=== PATIENT | female | born 1995 | race Caucasian/White ===

== ENCOUNTER → 2018-02-14 | Outpatient (CLI) | payer OTHER | LOC: FIMAGING 11:02 | PROVIDERS: ATTEND Physician Assistant | DX: Z87.42 Personal history of other diseases of the female genital tract (principal) ==

== ENCOUNTER 2018-05-16 19:43 | Emergency (ER) | payer OTHER ==
[2018-05-16 19:58] VITALS: BP 134/84
--- NOTE | 2018-05-16 20:39 | EDPHY ---
H & P Stated Complaint: c/o sharp intermittent pain in R knee 7 days, no known inj Time Seen by Provider: 05/16/18 20:14 HPI/ROS: Chief Complaint: Right anterior knee pain HPI: The patient presents to the ED right anterior knee pain for the past 5 days. It seems to be exacerbated by running. The patient feels a clicking over the the the right lateral anterior aspect of the patella. She denies any calf pain. She denies additional acute complaints. REVIEW OF SYSTEMS: Neuro: [no headache, numbness, weakness] Musculoskeletal: [as above] Skin: [no abrasion or lacerations] Source: Patient - Medical/Surgical History Hx Asthma: No Hx Chronic Respiratory Disease: No Hx Diabetes: No Hx Cardiac Disease: No Hx Renal Disease: No Hx Cirrhosis: No Hx Alcoholism: No Hx HIV/AIDS: No Hx Splenectomy or Spleen Trauma: No Other PMH: none - Social History Smoking Status: Never smoked - Physical Exam Exam: General Appearance: Alert, no distress Skin: Warm and dry, no rashes Musculoskeletal: Tenderness to palpation over the right lateral inferior patella with a palpable fibrous band which is reproducing the patient's symptoms Extremities: symmetrical, full range of motion Constitutional: Initial Vital Signs Temperature (C) 36.7 C 05/16/18 19:55 Heart Rate 98 05/16/18 19:55 Respiratory Rate 16 05/16/18 19:55 Blood Pressure 134/84 H 05/16/18 19:55 O2 Sat (%) 99 05/16/18 19:55 O2 Delivery Mode Room Air Allergies/Adverse Reactions: No Known Allergies Allergy (Unverified 05/16/18 19:58) Home Medications: Medication Instructions Recorded Control 05/16/18 Medical Decision Making ED Course/Re-evaluation: Patient presents to the ED with a right knee pain which is clearly musculoskeletal in nature with a painful fibrous band subluxing over the patella with full flexion. Departure - Departure Disposition: Home, Routine, Self-Care Clinical Impression: Knee sprain Qualifiers: Encounter type: initial encounter Laterality: right Condition: Good Instructions: Knee Sprain (ED) Additional Instructions: 1. Take Ibuprofen or Motrin 600 mg by mouth three times a day. 2. Please schedule a follow-up appointment with the orthopedic surgeon you have been referred to. Referrals: Dulce Cruz MD [Medical Doctor] - As per Instructions
== END 2018-05-16 20:50 | disposition home or self-care (01) ==
DX: S83.91XA Sprain of unspecified site of right knee, initial encounter (principal); X50.9XXA Other and unspecified overexertion or strenuous movements or postures, initial encounter; Y92.9 Unspecified place or not applicable; Y93.9 Activity, unspecified; Y99.9 Unspecified external cause status

== ENCOUNTER 2018-06-05 20:00 | Emergency (ER) | payer OTHER ==
[2018-06-05 20:07] VITALS: BP 139/90
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
== END 2018-06-05 20:25 | disposition home or self-care (01) ==
DX: S16.1XXA Strain of muscle, fascia and tendon at neck level, initial encounter (principal); S09.90XA Unspecified injury of head, initial encounter; V48.5XXA Car driver injured in noncollision transport accident in traffic accident, initial encounter; Y92.9 Unspecified place or not applicable; Y99.9 Unspecified external cause status; Y93.9 Activity, unspecified